=== PATIENT | male | born 1965 | race African-American/Black ===

== ENCOUNTER 2022-12-23 05:38 | Observation (INO) | payer BC ==
[2022-12-23] MEDS ORDERED: Tranexamic Acid 1,000 MG/10 ML VIAL ONE ×2 (05:56→10:05)
[2022-12-23] MEDS ORDERED: Sodium Chloride 0.9% 100 ML ONE ×2 (05:56→06:46)
[2022-12-23] MEDS ORDERED: VANCOMYCIN 2 GRAM/500 ML BAG 2 GM in Premix Bag 1 BAG IVPB SCH (06:00)
[2022-12-23] MEDS ORDERED: Midazolam HCl 2 mg/2 ml Vial ONE (06:22)
[2022-12-23] MEDS ORDERED: fentaNYL PF 100 MCG/2 ML SYRINGE ONE ×2 (06:22→07:01)
[2022-12-23] MEDS ORDERED: Dexamethasone 20 MG/5 ML VIAL ONE (06:45)
[2022-12-23] MEDS ORDERED: Ketorolac Tromethamine 30 MG/ML VIAL ONE (06:45)
[2022-12-23] MEDS ORDERED: Bupivacaine HCl 0.5%/Epinephrine 1:200,000/PF 30 ml Vial ONE ×2 (06:45→07:48)
[2022-12-23] MEDS ORDERED: Ondansetron PF 4 MG/2 ML Vial ONE (06:45)
[2022-12-23] MEDS ORDERED: PROPOFOL 200 MG/20 ML VIAL ONE (06:45)
[2022-12-23] MEDS ORDERED: CEFAZOLIN 2 GM VIAL ONE (06:46)
[2022-12-23] MEDS ORDERED: PROPOFOL 20 ML ONE (07:15)
[2022-12-23] MEDS ORDERED: fentaNYL 50 mcg/mL 1 mL Vial SLOW IVP PRN (07:23)
[2022-12-23] MEDS ORDERED: traMADol HCl 50 MG TAB PO PRN ×2 (07:30)
[2022-12-23] MEDS ORDERED: Ondansetron PF 4 MG/2 ML Vial IVP PRN ×2 (07:30→10:55)
[2022-12-23] MEDS ORDERED: Promethazine HCl 25 MG/ML VIAL IM PRN ×2 (07:30→10:55)
[2022-12-23] MEDS ORDERED: Zolpidem Tartrate 5 MG TAB PO PRN ×2 (07:30→10:55)
[2022-12-23] MEDS ORDERED: Ropivacaine 0.2% 550 ML 550 ML NERVE BLCK SCH (07:30)
[2022-12-23] MEDS ORDERED: HYDROcodone/Acetaminophen 10/325 mg Tablet PO PRN ×2 (07:30)
[2022-12-23] MEDS ORDERED: Bupivacaine PF 0.5% 30 ML VIAL ONE (08:55)
[2022-12-23] MEDS ORDERED: Acetaminophen 325 MG TAB PO PRN (10:55)
[2022-12-23] MEDS ORDERED: diphenhydrAMINE 25 MG CAP PO PRN (10:55)
[2022-12-23] MEDS: Multivitamin W/ Minerals 1 TAB PO SCH (11:26)
[2022-12-23] MEDS: Sodium Chloride 0.9% 1,000 ML IV SCH ×2 (11:27→21:00)
[2022-12-23] MEDS ORDERED: Ketorolac Tromethamine 30 MG/ML VIAL IVP SCH (12:00)
[2022-12-23] MEDS ORDERED: CEFAZOLIN 2 GM in Sodium Chloride 0.9% 100 ML IVPB SCH (14:00)
[2022-12-23] MEDS: Ketorolac Tromethamine 30 MG/ML VIAL IVP SCH ×2 (14:42→20:42)
[2022-12-23] MEDS: CEFAZOLIN 2 GM in Sodium Chloride 0.9% 100 ML IVPB SCH ×2 (14:43→23:37)
[2022-12-23 15:52] VITALS: BMI 37.9
[2022-12-23] MEDS: Senokot S 8.6-50 MG TAB PO SCH (20:42)
[2022-12-23] MEDS: Aspirin 81 mg Enteric Coated Tablet PO SCH (20:42)
[2022-12-23] MEDS: Ferrous Gluconate 324 MG TAB PO SCH (20:44)
[2022-12-24] MEDS: Ketorolac Tromethamine 30 MG/ML VIAL IVP SCH ×2 (02:15→09:57)
[2022-12-24] MEDS: Sodium Chloride 0.9% 1,000 ML IV SCH (06:01)
[2022-12-24 06:25] LABS: Hematocrit 37.4 % (42.0-52.0); Hemoglobin 12.1 g/dL (14.0-18.0); Mean Corpuscular HGB CONC 32.4 g/dL (32.0-36.0); Mean Corpuscular Hemoglobin 30.5 pg (27.0-31.0); Mean Corpuscular Volume 94.2 fl (78.0-98.0); Mean Platelet Volume 9.9 fL (7.4-10.4); Platelet Count 221 10x3/uL (130-400); RBC Distribution Width 14.2 % (11.5-14.5); Red Blood Cell (RBC) Count 3.97 mill/uL (4.70-6.10); White Blood Cell (WBC) Count 13.2 10x3/uL (4.8-10.8)
[2022-12-24] MEDS ORDERED: Folic Acid 1 MG TAB PO SCH (09:00)
[2022-12-24 09:06] VITALS: BP 114/66; TEMP 99.1
[2022-12-24] MEDS: Ferrous Gluconate 324 MG TAB PO SCH (09:57)
[2022-12-24] MEDS: Multivitamin W/ Minerals 1 TAB PO SCH (09:57)
[2022-12-24] MEDS: Senokot S 8.6-50 MG TAB PO SCH (09:57)
[2022-12-24] MEDS: Aspirin 81 mg Enteric Coated Tablet PO SCH (09:57)
[2022-12-30] MEDS ORDERED: Methotrexate Sodium 2.5 MG TAB PO SCH (09:00)
== END 2022-12-24 12:00 | disposition home or self-care (01) ==
LOC: SDC 05:38 → SURG B 06:54
PROVIDERS: ADMIT Orthopaedic Surgery; ATTEND Orthopaedic Surgery
PROC: 0SRC0JZ Replacement of Right Knee Joint with Synthetic Substitute, Open Approach (ICD-10-PCS; principal; 2022-12-23)
DX: M17.11 Unilateral primary osteoarthritis, right knee (principal)
CPT/HCPCS: 85027; A4306; C1776; J1100; J1885; J2250; J2405; J2704; J2795; J3370; J3490; J7050; S0020